=== PATIENT | male | born 1945 | race Caucasian/White ===

== ENCOUNTER 2017-04-09 17:07 | Emergency (ER) | payer MEDICARE, OTHER ==
[2017-04-09] MEDS ORDERED: Albuterol/Ipratropium NEB.SOL* Albuterol 2.5 MG/Ipratropium 0.5 MG 3 ML INH ONE (17:57)
[2017-04-09] MEDS ORDERED: predniSONE TAB* 20 MG PO ONE (17:57)
[2017-04-09] MEDS ORDERED: Benzonatate CAP* 100 MG PO ONE (17:58)
--- NOTE | 2017-04-09 18:05 | UC ---
FLU HPI - HPI Summary HPI Summary: 72 year old male with history of htn, hld, hypothyrodism here with complaint of congestion for over one week. Symptoms started one week ago with upper respiratory symptoms but in the past few days he reports sinus congestion and chest tightness. Reports sob partially alleviated by his inhaler. No cp or exertional symptoms. - History of Current Complaint Chief Complaint: UCRespiratory Stated Complaint: CONGESTED Time Seen by Provider: 04/09/17 17:21 Hx Obtained From: Patient Onset/Duration: Gradual Onset Associated Signs & Symptoms: Positive: Myalgia, Cough, Sore Throat, Nasal Congestion. Negative: Headache, Vomiting, Diarrhea - Allergy/Home Medications Allergies/Adverse Reactions: Allergies Allergy/AdvReac Type Severity Reaction Status Date / Time Aspirin Allergy Rash Verified 04/09/17 17:19 Home Medications: Home Medications Chlorthalidone TAB* [Hygroton TAB*] 25 mg PO DAILY 04/09/17 [History Confirmed 04/09/17] Fluticasone Propionate Hfa [Flovent Hfa] 110 mcg IN 04/09/17 [History] Levothyroxine TAB* [Synthroid 25 MCG TAB*] 25 mg PO DAILY 04/09/17 [History Confirmed 04/09/17] Nebivolol HCl [Bystolic] 20 mg PO DAILY 04/09/17 [History Confirmed 04/09/17] Proventil Hfa 1 puff INH PRN 04/09/17 [History] Rosuvastatin Calcium 10 mg PO DAILY 04/09/17 [History Confirmed 04/09/17] PMH/Surg Hx/FS Hx/Imm Hx Previously Healthy: No - Surgical History Surgical History: Unable to Obtain/Confirm - Social History Alcohol Use: None Substance Use Type: None Smoking Status (MU): Never Smoked Tobacco Review of Systems Constitutional: Chills ENT: Sore Throat, Nasal Discharge, Sinus Congestion, Sinus Pain/Tenderness Respiratory: Shortness Of Breath, Cough Cardiovascular: Negative Gastrointestinal: Negative Genitourinary: Negative Motor: Negative Neurovascular: Negative Musculoskeletal: Negative Neurological: Negative Psychological: Negative All Other Systems Reviewed And Are Negative: Yes Physical Exam Triage Information Reviewed: Yes Appearance: Well-Appearing, No Pain Distress Vital Signs: Initial Vital Signs Temp 36.6 C 04/09/17 17:24 Pulse 76 04/09/17 17:24 Resp 20 04/09/17 17:24 BP 160/86 12/13/17 17:24 Pulse Ox 99 04/09/17 17:24 ENT: Positive: Pharyngeal erythema, Nasal congestion, Nasal drainage, Sinus tenderness Neck: Positive: Supple, Nontender, No Lymphadenopathy Respiratory Exam: Normal Respiratory: Positive: Wheezing Cardiovascular: Positive: RRR, No Murmur Abdomen Description: Positive: Nontender, No Organomegaly Musculoskeletal: Positive: No Edema Neurological Exam: Normal Skin Exam: Normal Diagnostics - EKG Cardiac Rate: Tachycardia Cardiac Rhythm: Sinus: Normal Flu Course/Dx - Course Course Of Treatment: Asthma exacerbation. EKG NSR with no ST-T abnormality. CXR unremarkable. - Differential Dx/Diagnosis Differential Diagnosis/HQI/PQRI: Bronchitis, Pneumonia, Upper Respiratory Infection, Other Provider Diagnoses: Asthma exacerbation Discharge - Discharge Plan Condition: Good Disposition: HOME Prescriptions: Benzonatate CAP* [Tessalon 100 MG CAP*] 100 mg PO TID #20 cap predniSONE TAB* [Deltasone TAB*] 50 mg PO ONCE #4 tab Patient Education Materials: Bronchospasm (ED), Cold Symptoms (ED) Print Language: BELARUSIAN Referrals: No Primary Care Phys,NOPCP [Primary Care Provider] -
--- NOTE | 2017-04-09 18:48 | RAD ---
HISTORY: Cough, congestion COMPARISONS: None VIEWS: 4: Frontal dual-energy and lateral views of the chest. FINDINGS: CARDIOMEDIASTINAL SILHOUETTE: The cardiomediastinal silhouette is normal. LAZARA: The lazara are normal. PLEURA: The costophrenic angles are sharp. No pleural abnormalities are noted. LUNG PARENCHYMA: The lungs are clear. ABDOMEN: The upper abdomen is clear. There is no subphrenic gas. BONES AND SOFT TISSUES: No bone or soft tissue abnormalities are noted. OTHER: None. IMPRESSION: NO ACTIVE CARDIOPULMONARY DISEASE.
[2017-04-09 19:19] VITALS: BP 157/76
== END 2017-04-09 19:19 | disposition home or self-care (01) ==
LOC: UCEAST 17:07
DX: J45.901 Unspecified asthma with (acute) exacerbation (principal); R00.0 Tachycardia, unspecified; I10 Essential (primary) hypertension; E78.5 Hyperlipidemia, unspecified; E03.9 Hypothyroidism, unspecified; Z88.6 Allergy status to analgesic agent
CPT/HCPCS: 71020; 93005; 99202; A9270-GY; G0463; J7512